=== PATIENT | female | born 1960 | race Caucasian/White ===

== ENCOUNTER 2017-08-20 13:58 | Emergency (ER) | payer OTHER ==
[2017-08-20] MEDS ORDERED: ADENOSINE 6 MG/2 ML VIAL ONE (14:04)
--- NOTE | 2017-08-20 14:19 | EDPHY ---
H & P Stated Complaint: "SVT" x 1 hour Time Seen by Provider: 08/20/17 14:05 HPI/ROS: CHIEF COMPLAINT: Rapid heart rate HISTORY OF PRESENT ILLNESS: 57-year-old female with a history of SVT presents with rapid heart rate. She was working in her garden just prior to arrival when she had sudden onset of rapid heart rate, associated with dizziness. She tried multiple maneuvers, including Valsalva maneuver, in an attempt to convert to normal sinus rhythm. However, she continued to have a rapid heart rate so presents to the emergency department. Associated with moderate neck discomfort and dizziness, especially when standing. Similar to prior episodes of SVT. No chest pain or SOB. REVIEW OF SYSTEMS: complete 10 point ROS negative except at noted in the HPI - Personal History Current Tetanus/Diphtheria Vaccine: No Current Tetanus Diphtheria and Acellular Pertussis (TDAP): No - Medical/Surgical History Hx Asthma: No Hx Chronic Respiratory Disease: No Hx Diabetes: No Hx Cardiac Disease: Yes Hx Renal Disease: No Hx Cirrhosis: No Hx Alcoholism: No Hx HIV/AIDS: No Hx Splenectomy or Spleen Trauma: No Other PMH: SVT since age 19. R/A - Social History Smoking Status: Former smoker Constitutional: Initial Vital Signs Temperature (C) 36.5 C 08/20/17 14:00 Heart Rate 180 H 08/20/17 14:00 Respiratory Rate 20 08/20/17 14:00 Blood Pressure 92/60 L 08/20/17 14:00 O2 Sat (%) 98 08/20/17 14:00 O2 Delivery Mode Room Air Allergies/Adverse Reactions: No Known Allergies Allergy (Verified 01/29/15 10:02) Home Medications: Medication Instructions Recorded Miscellaneous Medical Supply [NO 04/16/13 HOME MEDS] Methotrexate 08/20/17 Prednisone 08/20/17 Medical Decision Making - Diagnostics EKG Interpretation: EKG interpreted by me reveals SVT, rate 192, diffuse ST segment depression. Interpretation: Abnormal EKG ED Course/Re-evaluation: This patient presents in SVT. Blood pressure is borderline with a systolic blood pressure of 92. An IV was established and 1 L of normal saline given. Adenosine 6 mg IV given. She converted to normal sinus rhythm after 1 dose of adenosine. Repeat EKG reveals normal sinus rhythm. Pt asymptomatic after conversion to NSR. She declined observation in the emergency department and wishes to go home. This is a safe plan for her as she has had multiple prior episodes of SVT and there are no concerning signs or symptoms. Differential Diagnosis: includes though not limited to hypotension, Afib with RVR, Vtach, sinus tachycardia - Data Points Laboratory Results: Laboratory Results 08/20/17 14:15 08/20/17 14:15 Medications Given: Discontinued Medications Adenosine (Adenosine) 6 mg IVP EDNOW ONE Stop: 08/20/17 14:22 Last Admin: 08/20/17 14:12 Dose: 6 mg Departure - Departure Disposition: Home, Routine, Self-Care Clinical Impression: Supraventricular tachycardia Condition: Good Instructions: Supraventricular Tachycardia (ED) Additional Instructions: Drink plenty of fluids. Avoid caffeine. Return for recurrent symptoms or any concerns. Referrals: Adrián Maynard MD [Primary Care Provider] - As per Instructions Rafael Cedeño MD [Medical Doctor] - As per Instructions (Call to make an appointment. )
--- NOTE | 2017-08-20 14:19 | CPEKG ---
Heart Rate: 91 RR Interval: 659 P-R Interval: 164 QRSD Interval: 84 QT Interval: 364 QTC Interval: 448 P [employer]: 66 QRS [employer]: 63 T Wave [employer]: 57 EKG Severity - NORMAL ECG - EKG Impression: SINUS RHYTHM Electronically Signed By: Josephine Leija 20-Aug-2017 15:01:01
[2017-08-20] MEDS ORDERED: ADENOSINE 6 MG/2 ML VIAL IVP ONE (14:21)
[2017-08-20 14:32] LABS: PLATELET COUNT 344 10^3/uL (150-400)
[2017-08-20 14:43] VITALS: BP 103/71
--- NOTE | 2017-08-20 14:48 | CPEKG ---
Heart Rate: 198 RR Interval: 303 QRSD Interval: 68 QT Interval: 248 QTC Interval: 451 P [place]: 0 QRS [place]: 70 T Wave [place]: 46 EKG Severity - ABNORMAL ECG - EKG Impression: SUPRAVENTRICULAR TACHYCARDIA EKG Impression: ST DEPRESSION, PROBABLY RATE RELATED Electronically Signed By: Josephine Leija 20-Aug-2017 15:01:10
== END 2017-08-20 14:43 | disposition home or self-care (01) ==
DX: I47.1 Supraventricular tachycardia (principal); Z87.891 Personal history of nicotine dependence
CPT/HCPCS: 96374; J0153

== ENCOUNTER 2017-12-15 12:03 | Emergency (ER) | payer OTHER ==
[2017-12-15] MEDS ORDERED: ADENOSINE 6 MG/2 ML VIAL ONE ×2 (12:11→12:13)
[2017-12-15] MEDS ORDERED: NS 500 ML IV ONE (12:24)
--- NOTE | 2017-12-15 13:07 | EDPHY ---
H & P Time Seen by Provider: 12/15/17 12:20 HPI/ROS: HPI I think I am in SVT. History of SVT. 57-year-old female by private vehicle. This patient has a history of SVT since she was 19 years old. She reports that she felt herself go into SVT at 10:00 a.m.. She is usually able to break this with Valsalva type maneuvers. She was not able to do so. She presents with complaint of palpitations, dizziness and some shortness of breath. No chest pain. ROS: Constitutional: No fever, no chills. As above. Eyes: No discharge. No changes in vision. ENT: No sore throat. No nasal congestion or rhinorrhea. Respiratory: No cough. As above. Cardiac: No chest pain, as above. Gastrointestinal: No abdominal pain, no vomiting, no diarrhea. Genitourinary: No hematuria. No dysuria or increased frequency with urination. Musculoskeletal: No back pain. No neck pain. No myalgias or arthralgias. Skin: No rashes. Neurological: No headache. No focal weakness or altered sensation. Past medical history: Rheumatoid arthritis. SVT. Her wardrobe image consultant is Dr. Greene. She is not on a beta-han. Social history: Nonsmoker. No alcohol. Here with her . Physical Exam: General Appearance: Alert, no distress. This patient is responding to questions appropriately and in full sentences. This patient appears well- hydrated and well-nourished. Eyes: Pupils equal and round no pallor or injection. No lid edema, erythema or injection. Respiratory: There are no retractions, lungs are clear to auscultation anteriorly with good air movement bilaterally. Cardiovascular: Regular rate and rhythm. Borderline tachycardia. Neurological: Motor sensory function is grossly intact. Cranial nerves are normal. Gait is normal. Skin: Warm and dry, no rashes. Musculoskeletal: Neck is supple and nontender. Extremities are symmetrical. All joints range without pain or impingement. Psychiatric: No agitation. No depression. Database: EKG: EKG time is 12:14 p.m.: EKG shows a narrow complex SVT ventricular rate of 182. It is regular. Interpreted by me. EKG time is 12:40 p.m.; EKG shows a narrow complex normal sinus rhythm with a ventricular rate of 85. The NC, QRS, QT intervals are within normal limits. There are no ST-T wave changes indicative of ischemic or injury pattern. No evidence of right heart strain. No evidence of Brugada syndrome, WPW, hypertrophic cardiomyopathy. Interpreted by me. Imaging: Procedures: Emergency department course: Triage vital signs reviewed. Heart rate of 183. She is afebrile. Vital signs otherwise normal. EKG obtained and reviewed by myself. IV placed. Patient placed on a electronics processor. As we were preparing to give the patient adenosine , she Valsalva lid and broke her SVT and converted to a sinus rhythm, narrow complex with ventricular rate of 100 on the monitor. 1:05 p.m., patient re-evaluated. She has been asymptomatic. Repeat EKG as above is normal. She feels comfortable going home and I feel she is safe for discharge. Follow-up and return to emergency department precautions reviewed with her and her . All of their questions were answered. She was discharged from the emergency department in good condition. Differential Diagnosis: The differential diagnosis on this patient includes but is not limited to SVT. Ventricular tachycardia, atrial fibrillation, ventricular fibrillation, pulmonary embolism, acute coronary syndrome, toxic/metabolic problem unlikely. This represents a partial list of diagnoses considered. These considerations are based on history, physical exam, past history, reassessment and diagnostic testing. Smoking Status: Former smoker Constitutional: Initial Vital Signs Temperature (C) 36.7 C 12/15/17 12:12 Heart Rate 183 H 12/15/17 12:12 Respiratory Rate 20 12/15/17 12:12 Blood Pressure 120/79 12/15/17 12:12 O2 Sat (%) 98 12/15/17 12:12 O2 Delivery Mode Room Air Allergies/Adverse Reactions: No Known Allergies Allergy (Verified 12/15/17 12:18) Home Medications: Medication Instructions Recorded Methotrexate 08/20/17 FOLIC ACID 12/15/17 Plaquenil 200 mg (*) 12/15/17 Medical Decision Making - Data Points Medications Given: Discontinued Medications Sodium Chloride (Ns) 500 mls @ 0 mls/hr IV ONCE ONE PRN Reason: Wide Open Stop: 12/15/17 12:25 Last Admin: 12/15/17 12:15 Dose: 500 mls Departure - Departure Disposition: Home, Routine, Self-Care Clinical Impression: SVT (supraventricular tachycardia) Condition: Good Instructions: Supraventricular Tachycardia (ED) Additional Instructions: Read and follow provided instructions. Follow-up with her wardrobe image consultant, at least by phone, tomorrow or Tuesday for re- evaluation. Keep well hydrated. Return to the emergency department for return of symptoms, chest pain or other serious concerns. Referrals: Donald Greene MD [Medical Doctor] - As per Instructions
[2017-12-15 13:10] VITALS: BP 102/76
--- NOTE | 2017-12-15 13:47 | CPEKG ---
Test Reason : OPEN Blood Pressure : / mmHG Vent. Rate : 085 BPM Atrial Rate : 084 BPM P-R Int : 167 ms QRS Dur : 090 ms QT Int : 377 ms P-R-T Axes : 053 032 015 degrees QTc Int : 449 ms Sinus rhythm Confirmed by Val Rivera ([id number]) on 12/15/2017 1:47:33 PM Referred By: Confirmed By:Val Rivera
== END 2017-12-15 13:16 | disposition home or self-care (01) ==
DX: I47.1 Supraventricular tachycardia (principal); M06.9 Rheumatoid arthritis, unspecified; Z87.891 Personal history of nicotine dependence
CPT/HCPCS: J0153